=== PATIENT | female | born 1955 | race Caucasian/White ===

== ENCOUNTER 2022-03-30 05:33 | Day surgery (SDC) | payer MEDICARE, BC ==
[~2022-03-30] VITALS: Ht 165.1 cm; Wt 65.9 kg
[~2022-03-30 05:33] MED LIST: ESTR1TAB28 PO; MEDR10TA10 PO; ceFAZolin inj. 2,000 MG in dextrose 5%-water 100 ML IV ONE; famotidine 20mg tablet PO ONE; ringers solution, lacted 1,000 ML IV SCH
[2022-03-30 05:40] VITALS: BP 144/72
[2022-03-30] MEDS ORDERED: epiNEPHrine 1 mg/ml inj ONE (06:48)
[2022-03-30] MEDS ORDERED: LIDOcaine 1% 30ml preserv. free vial ONE (06:48)
[2022-03-30] MEDS ORDERED: TETRACAINE 0.5% 4 ML OPHTHALMIC DROPS ONE (06:53)
[2022-03-30] MEDS ORDERED: proCHLORperazine 10 MG/2 ml inj IV PRN (07:30)
[2022-03-30] MEDS ORDERED: hydrALAZINE 20mg/ml inj. IV PRN (07:30)
[2022-03-30] MEDS ORDERED: morphine 2 MG/ML inj. syringe IV PRN (07:30)
[2022-03-30] MEDS ORDERED: morphine 4 MG/ML inj SYRINge IV PRN (07:30)
[2022-03-30] MEDS ORDERED: acetaminophen 1,000mg/100ml IV 100 ML IV PRN (07:30)
[2022-03-30] MEDS ORDERED: meperidine/PF 25mg/ml syringe IV PRN ×3 (07:30)
[2022-03-30] MEDS ORDERED: ondansetron/PF 4mg/2ml inj IV PRN (07:30)
[2022-03-30] MEDS ORDERED: labetalol 20mg/4ml (5mg/ml) syringe IV PRN (07:30)
[2022-03-30] MEDS ORDERED: ringers solution, lacted 1,000 ML IV SCH (07:30)
[2022-03-30] MEDS ORDERED: midazolam 1 mg/ML 2ml injection ONE (07:35)
[2022-03-30] MEDS ORDERED: fentaNYL/PF 50MCG/1 ML 2ML syringe ONE (07:35)
[2022-03-30] MEDS ORDERED: mineral oil/petrolatum ophthal oint ONE ×2 (07:54→08:00)
[2022-03-30] MEDS ORDERED: polyvinyl alcohol ophthalmic drops 15ml bottle ONE (08:00)
[2022-03-30] MEDS ORDERED: propofol inj 20 ML IV ONE ×2 (08:02)
[2022-03-30 08:29] VITALS: BP 104/51
--- NOTE | 2022-03-30 08:29 | NUR ---
Received from OR via BED, accompanied by Anesthesiologist and report given by DAYAMI Anesthesiologist. PATIENT WAKING UP, DENIES PAIN, VSS, 20G PIV TO RFA, BILATERAL EYELID DRESSING C/D/I. Addendum: 03/30/22 at 0908 by Selvin Almonte RN Amended: Links added.
[2022-03-30 08:40] VITALS: BP 122/62
[2022-03-30 08:50] VITALS: BP 132/78
[2022-03-30 09:00] VITALS: BP 128/65
--- NOTE | 2022-03-30 09:04 | NUR ---
ALL DISCHARGE CRITERIA HAS BEEN MET. VSS, PAIN AT A TOLERABLE LEVEL, VOIDING AND ABLE TO SAFELY AMBULATE AND TRANSFER SELF. IV TAKEN OUT WITHOUT ANY COMPLICATIONS. ALL DISCHARGE INSTRUCTIONS COVERED WITH PATIENT AND ALL QUESTIONS ANSWERED. PATIENT TAKEN OUT VIA WHEELCHAIR WITH ALL BELONGINGS TO PERSONAL VEHICLE WHERE FRIEND DROVE PATIENT HOME. Addendum: 03/30/22 at 0919 by Selvin Almonte RN Amended: Links added.
== END 2022-03-30 09:04 | disposition home or self-care (01) ==
LOC: PAS 05:33
PROVIDERS: ATTEND Specialist
DX: H02.834 Dermatochalasis of left upper eyelid (principal); H02.831 Dermatochalasis of right upper eyelid; Z79.899 Other long term (current) drug therapy; Z98.890 Other specified postprocedural states; F17.210 Nicotine dependence, cigarettes, uncomplicated; M19.90 Unspecified osteoarthritis, unspecified site
CPT/HCPCS: 15822; 82948; 87811; 93005; A6402; J0171; J0690; J2250; J2704; J3010; J3490; J7030; J7060; J7120; Z7506; Z7512; A4215; A4618; A6410; A7000